=== PATIENT | male | born 1970 | race Caucasian/White ===

== ENCOUNTER → 2021-04-13 | Outpatient (CLI) | payer OTHER | LOC: M PLAIMG 08:20 | PROVIDERS: ATTEND Physician Assistant | DX: R93.7 Abnormal findings on diagnostic imaging of other parts of musculoskeletal system (principal); M54.50 Low back pain, unspecified ==

== ENCOUNTER → 2021-08-12 | Outpatient (CLI) | payer OTHER ==
[~2021-08-12] MED LIST: AMOX875T2; GABA-1171 PO; IBUP-1022 PO; LISI10TA22 PO; LORA-674 PO; LOSA50TA28 PO; METH4PACK; OMEP40CA5 PO; ROSU20TA5 PO; TIZA10TA PO; TREL1AER
== END ==
LOC: M LABSMTC 09:51
PROVIDERS: ATTEND Anesthesiology
DX: Z01.812 Encounter for preprocedural laboratory examination (principal)

== ENCOUNTER 2021-08-16 10:43 | Day surgery (SDC) | payer OTHER ==
[~2021-08-16] VITALS: Ht 165.1 cm; Wt 79.4 kg
[~2021-08-16 10:43] MED LIST changes: +CelecoXIB 400 MG CAP PO ONE; +HYDROMORPHONE HCL 0.5 MG/ 0.5 ML SYRINGE (J1170 PER 1) IV PRN; +LR 1,000 ML IV SCH; +MEPERIDINE INJ 25 MG/ML VIAL (J2175) IV PRN; +METOCLOPRAMIDE INJ 10MG/2ML VIAL (J2765 PER 1) IV PRN; +ONDANSETRON 4MG 2ML VIAL IV PRN; +ceFAZolin SOD 2 GM in IV 1 EA IV ONE; +fentaNYL 100 MCG/2 ML INJECTION IV PRN; +oxyCODONE 5MG TAB PO PRN
[2021-08-16] MEDS ORDERED: ONDANSETRON 4MG 2ML VIAL As Ordered ONE (11:45)
[2021-08-16] MEDS ORDERED: SUGAMMADEX SODIUM 500 MG/5 ML VIAL (BRIDION) As Ordered ONE (11:45)
[2021-08-16] MEDS ORDERED: dexameTHASONE 4 MG/ML 1ML VIAL (J1100 PER 1MG) As Ordered ONE (11:45)
[2021-08-16] MEDS ORDERED: LIDOCAINE 2% INJ 100 MG/5 ML SYRINGE As Ordered ONE (11:45)
[2021-08-16] MEDS ORDERED: KETOROLAC 60MG 2ML VIAL As Ordered ONE (11:45)
[2021-08-16] MEDS ORDERED: propofoL 200 MG/20 ML VIAL As Ordered ONE (11:45)
[2021-08-16] MEDS ORDERED: ROCURONIUM BROMIDE 50 MG/5 ML VIAL As Ordered ONE ×2 (11:45→12:12)
[2021-08-16] MEDS ORDERED: MIDAZOLAM INJ 2MG/2ML VIAL (J2250 PER 1MG) As Ordered ONE (11:46)
[2021-08-16] MEDS ORDERED: fentaNYL 100 MCG/2 ML INJECTION As Ordered ONE ×2 (11:46→14:50)
[2021-08-16] MEDS ORDERED: ONDANSETRON 4MG 2ML VIAL IV PRN ×2 (12:00→16:40)
[2021-08-16] MEDS ORDERED: MEPERIDINE INJ 25 MG/ML VIAL (J2175) IV PRN (12:00)
[2021-08-16] MEDS ORDERED: oxyCODONE 5MG TAB PO PRN ×2 (12:00→16:40)
[2021-08-16] MEDS ORDERED: fentaNYL 100 MCG/2 ML INJECTION IV PRN ×2 (12:00→16:40)
[2021-08-16] MEDS ORDERED: ALBUTEROL SULFATE 2.5 MG/0.5 ML INH NEB SOLN INH PRN (12:00)
[2021-08-16] MEDS ORDERED: LR 1,000 ML IV SCH ×2 (12:00→16:40)
[2021-08-16] MEDS ORDERED: HYDROMORPHONE HCL 0.5 MG/ 0.5 ML SYRINGE (J1170 PER 1) IV PRN ×2 (12:00→16:40)
[2021-08-16] MEDS ORDERED: METOCLOPRAMIDE INJ 10MG/2ML VIAL (J2765 PER 1) IV PRN ×2 (12:00→16:40)
[2021-08-16] MEDS ORDERED: BUPIVACAINE HCL 0.25% 30ML VIAL As Ordered ONE (12:10)
[2021-08-16] MEDS ORDERED: LIDOCAINE 1% SDV 30ML VIAL As Ordered ONE (12:10)
[2021-08-16] MEDS ORDERED: ALBUTEROL 6.7GM INHALER **FOR ANES. CART/OMNICELL ONLY As Ordered ONE (12:57)
[2021-08-16] MEDS ORDERED: ACETAMINOPHEN 1000MG 100ML IV BTL (OFIRMEV) (J0131 PER 10MG) As Ordered ONE (13:02)
[2021-08-16] MEDS ORDERED: HYDROmorphone HCL 2MG/ML 1ML VIAL As Ordered ONE (16:23)
[2021-08-16] MEDS ORDERED: ALBUTEROL SULFATE 2.5 MG/0.5 ML INH NEB SOLN INH ONE (16:40)
[2021-08-16] MEDS ORDERED: LABETALOL 100MG/20ML VIAL As Ordered ONE (16:40)
[2021-08-16] MEDS ORDERED: PERCOCET 5MG/325MG TAB PO PRN ×2 (17:20)
[2021-08-16] MEDS ORDERED: KETOROLAC 30 MG/ML 1ML VIAL IV PRN (17:20)
[2021-08-16 17:41] VITALS: BP 121/85
== END 2021-08-16 17:58 | disposition home or self-care (01) ==
LOC: M SDC 10:43
PROVIDERS: ATTEND Surgery
DX: K40.00 Bilateral inguinal hernia, with obstruction, without gangrene, not specified as recurrent (principal); D17.6 Benign lipomatous neoplasm of spermatic cord
CPT/HCPCS: 49650; 64486; C1781; J0131; J0690; J1100; J1170; J1885; J2250; J2405; J3010; S2900

== ENCOUNTER → 2022-01-15 | Outpatient (CLI) | payer OTHER ==
[~2022-01-15] MED LIST changes: -CelecoXIB 400 MG CAP PO ONE; -HYDROMORPHONE HCL 0.5 MG/ 0.5 ML SYRINGE (J1170 PER 1) IV PRN; -LR 1,000 ML IV SCH; -MEPERIDINE INJ 25 MG/ML VIAL (J2175) IV PRN; -METOCLOPRAMIDE INJ 10MG/2ML VIAL (J2765 PER 1) IV PRN; -ONDANSETRON 4MG 2ML VIAL IV PRN; -ceFAZolin SOD 2 GM in IV 1 EA IV ONE; -fentaNYL 100 MCG/2 ML INJECTION IV PRN; -oxyCODONE 5MG TAB PO PRN
== END ==
LOC: M RAD 11:15
PROVIDERS: ATTEND Surgery
DX: K40.20 Bilateral inguinal hernia, without obstruction or gangrene, not specified as recurrent (principal)

== ENCOUNTER → 2022-05-10 | Outpatient (CLI) | payer OTHER | LOC: M PLAIMG 07:40 | PROVIDERS: ATTEND Physician Assistant | DX: M51.17 Intervertebral disc disorders with radiculopathy, lumbosacral region (principal) ==

== ENCOUNTER → 2024-01-10 | Outpatient (CLI) | payer OTHER ==
[~2024-01-10] MED LIST changes: +ERGO500029 PO; +FARX1TAB3 PO; +LORA-1041 PO; -LORA-674 PO; +METF10004 PO; +MONT10TA97 PO; -ROSU20TA5 PO; +ROSU20TA86 PO
[2024-01-10 12:39] LABS: HEMATOCRIT 51.4 % (42.0-52.0); HEMOGLOBIN 17.5 g/dl (13.5-17.5); MEAN CORPUSCULAR HEMOGLOBIN 30.1 pg (27.0-33.0); MEAN CORPUSCULAR VOLUME 88.3 fl (80.0-96.0); PLATELET COUNT, AUTOMATED 279 10^3/uL (150-450); RED BLOOD COUNT 5.82 10^6/uL (4.30-6.10); WHITE BLOOD COUNT 11.9 10^3/uL (4.0-10.0)
[2024-01-10 12:53] LABS: INR 0.91; PARTIAL THROMBOPLASTIN TIME 31.2 SECONDS (24.8-34.2); PROTHROMBIN TIME 12.6 SECONDS (12.5-14.5)
[2024-01-10 13:14] LABS: ALBUMIN 4.1 G/DL (3.2-5.2); ALKALINE PHOSPHATASE 115 U/L (40-129); ALT/SGPT 61 U/L (7.0-40); AST/SGOT 23 U/L (<34); BILIRUBIN,TOTAL 0.5 MG/DL (0.3-1.2); BLOOD UREA NITROGEN 11 MG/DL (9-23); CALCIUM LEVEL 9.8 MG/DL (8.5-10.1); CARBON DIOXIDE LEVEL 25 MMOL/L (20-31); CHLORIDE LEVEL 106 MMOL/L (98-107); CREATININE FOR GFR 0.69 MG/DL (0.70-1.30); GLOMERULAR FILTRATION RATE > 60.0 (>56); GLUCOSE, FASTING 133 MG/DL (60-100); POTASSIUM SERUM 4.5 MMOL/L (3.5-5.1); SODIUM LEVEL 138 MMOL/L (136-145); TOTAL PROTEIN 7.2 G/DL (5.7-8.2)
== END ==
LOC: M EKG 11:16
PROVIDERS: ATTEND Nurse Practitioner Adult Health
DX: Z01.812 Encounter for preprocedural laboratory examination (principal)

== ENCOUNTER → 2024-01-12 | Outpatient (CLI) | payer OTHER | LOC: M RAD 09:23 | PROVIDERS: ATTEND Nurse Practitioner Adult Health | DX: Z01.818 Encounter for other preprocedural examination (principal) ==

== ENCOUNTER 2024-01-21 06:06 | Day surgery (SDC) | payer OTHER ==
[~2024-01-21] VITALS: Ht 165.1 cm; Wt 89.1 kg
[2024-01-21] MEDS ORDERED: DEXTROSE 50% 50ML SYRINGE IV PRN ×2 (06:25→11:45)
[2024-01-21] MEDS ORDERED: GLUCAGON INJ 1MG VIAL SC PRN ×2 (06:25→11:45)
[2024-01-21] MEDS ORDERED: INSULIN LISPRO (NovoLOG) PER UNIT SC PRN (06:25)
[2024-01-21] MEDS ORDERED: LIDOCAINE 1% SDV 5ML VIAL SC PRN (06:25)
[2024-01-21] MEDS ORDERED: GLUCOSE 4 GM CHEW PO PRN ×2 (06:25→11:45)
[2024-01-21] MEDS ORDERED: ACETAMINOPHEN 1000MG/100ML IV BAG As Ordered ONE (06:47)
[2024-01-21] MEDS ORDERED: ROCURONIUM BROMIDE 50MG/5ML VIAL As Ordered ONE (06:56)
[2024-01-21] MEDS ORDERED: ONDANSETRON 4MG 2ML VIAL As Ordered ONE (06:56)
[2024-01-21] MEDS ORDERED: LIDOCAINE 2% 100MG/5ML SDV (FOR ANES.) As Ordered ONE (06:56)
[2024-01-21] MEDS ORDERED: propofoL 200 MG/20 ML VIAL As Ordered ONE (06:57)
[2024-01-21] MEDS ORDERED: SUGAMMADEX SODIUM 500 MG/5 ML VIAL (BRIDION) As Ordered ONE (06:57)
[2024-01-21] MEDS ORDERED: HYDROmorphone HCL 2MG/ML 1ML VIAL As Ordered ONE (06:57)
[2024-01-21] MEDS ORDERED: MIDAZOLAM INJ 2MG/2ML VIAL As Ordered ONE (06:57)
[2024-01-21] MEDS ORDERED: fentaNYL 100 MCG/2 ML INJECTION As Ordered ONE (06:58)
[2024-01-21] MEDS: CelecoXIB 400 MG CAP PO ONE (07:04)
[2024-01-21] MEDS: NS 1,000 ML IV SCH ×2 (07:04→11:10)
[2024-01-21] MEDS: ceFAZolin SOD 2 GM in IV 1 EA IV ONE (07:45)
[2024-01-21] MEDS ORDERED: KETOROLAC 60MG 2ML VIAL As Ordered ONE (10:40)
[2024-01-21] MEDS: LIDOCAINE 1% SDV 30ML VIAL As Ordered ONE (11:00)
[2024-01-21] MEDS ORDERED: oxyCODONE 5MG TAB PO PRN (11:10)
[2024-01-21] MEDS ORDERED: ONDANSETRON 4MG 2ML VIAL IV PRN (11:10)
[2024-01-21] MEDS ORDERED: HYDROMORPHONE HCL 0.5 MG/ 0.5 ML SYRINGE IV PRN (11:10)
[2024-01-21] MEDS ORDERED: fentaNYL 100 MCG/2 ML INJECTION IV PRN (11:10)
[2024-01-21] MEDS: INSULIN LISPRO (NovoLOG) PER UNIT SC PRN (11:53)
[2024-01-21 12:20] VITALS: BP 136/82; TEMP 97.2; O2SAT 95
== END 2024-01-21 12:30 | disposition home or self-care (01) ==
LOC: M SDC 06:06
PROVIDERS: ATTEND Surgery
DX: K40.91 Unilateral inguinal hernia, without obstruction or gangrene, recurrent (principal); D17.6 Benign lipomatous neoplasm of spermatic cord; R10.30 Lower abdominal pain, unspecified; K66.0 Peritoneal adhesions (postprocedural) (postinfection); E11.9 Type 2 diabetes mellitus without complications; J30.9 Allergic rhinitis, unspecified; Z79.899 Other long term (current) drug therapy; F17.210 Nicotine dependence, cigarettes, uncomplicated
CPT/HCPCS: 49651; 88304; C1781; J0131; J0665; J0690; J1100; J1171; J1885; J2250; J2405; J3010; S2900